=== PATIENT | male | born 1940 | race Caucasian/White ===

== ENCOUNTER 2017-04-25 07:12 | Emergency (ER) | payer OTHER ==
[~2017-04-25] VITALS: Ht 180.3 cm; Wt 74.8 kg
--- NOTE | 2017-04-25 07:12 | NUR ---
[id number], FOUND LYING IN THE STREET-PT DOES NOT RECALL WHAT HAPPENED BS-150 MG/DL. HYPOTHERMIC- T-93.2'F. BILATERAL LEG ABRASIONS. PLACED ON MONITOR. AWAITING MD ORDER
[2017-04-25] MEDS ORDERED: IV NS 0.9% 1,000 ML BAG IV ONE (07:30)
--- NOTE | 2017-04-25 07:35 | NUR ---
EKG IN PROGRESS
--- NOTE | 2017-04-25 07:41 | NUR ---
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
--- NOTE | 2017-04-25 07:54 | NUR ---
LAB AT BEDSIDE FOR BLOOD DRAW
[2017-04-25 08:13] LABS: BASOPHILS # (AUTO) 0.2 /CMM (0.0-0.2); BASOPHILS % (AUTO) 0.9 % (0.0-2.0); EOSINOPHILS % (AUTO) 0.1 % (0.0-6.0); HEMATOCRIT 42 % (39-51); LYMPHOCYTES # (AUTO) 0.6 /CMM (0.8-4.8); LYMPHOCYTES % (AUTO) 2.6 % (20.0-44.0); MEAN CORPUSCULAR HEMOGLOBIN 29 PG (26.0-33.0); MEAN CORPUSCULAR HGB CONC 34 g/dl (31.0-36.0); MEAN CORPUSCULAR VOLUME 85 fL (80-96); MONOCYTES # (AUTO) 1.7 /CMM (0.1-1.30); NEUTROPHILS # (AUTO) 21.2 /CMM (1.8-8.9); NEUTROPHILS % (AUTO) 89.4 % (43.0-81.0); PLATELET COUNT (AUTO) 301 /CMM (150-450); RDW COEFFICIENT OF VARIATION 14.3 (11.5-15.0); RED BLOOD CELL COUNT(AUTO) 4.88 MIL/uL (4.5-6.0); WHITE BLOOD COUNT (AUTO) 23.7 K/uL (4.3-11.0)
[2017-04-25 08:23] LABS: CALCIUM, SERUM 9.5 mg/dL (8.5-10.1); CARBON DIOXIDE 27 mmol/L (21-32); CHLORIDE 111 mmol/L (98-107); CREATININE 1.6 mg/dL (0.6-1.3); GLUCOSE 91 mg/dL (74-106); POTASSIUM 4.4 mmol/L (3.5-5.1); SODIUM SERUM 150 mmol/L (136-145); UREA NITROGEN, BLOOD 34 mg/dL (7-18)
[2017-04-25 08:28] LABS: ALANINE AMINOTRANSFERASE 27 U/L (12-78); ALBUMIN 4.1 g/dL (3.4-5.0); ALKALINE PHOSPHATASE 94 U/L (46-116); ASPARTATE AMINOTRANSFERASE 24 U/L (15-37); BILIRUBIN,DIRECT 0.1 mg/dL (0.0-0.2); BILIRUBIN,TOTAL 0.6 mg/dL (0.2-1.0); TOTAL PROTEIN, SERUM 7.2 g/dL (6.4-8.2)
[2017-04-25 08:30] LABS: TROPONIN I 0.033 ng/mL (0.00-0.056)
[2017-04-25 08:39] LABS: INR 0.93 (0.87-1.13); PROTHROMBIN TIME 9.7 SECS (9.5-12.7)
[2017-04-25] MEDS ORDERED: PIPERACILLIN /TAZOBACTAM 3.375 G in IV D5W 50 ML IV ONE (09:00)
[2017-04-25] MEDS ORDERED: IV NS 0.9% 250 ML IV ONE (09:00)
[2017-04-25] MEDS ORDERED: IV NS 0.9% 1,000 ML IV ONE (09:00)
--- NOTE | 2017-04-25 09:39 | NUR ---
URINE SAMPLE COLLECTED SENT TO LAB
[2017-04-25 09:53] LABS: CREATINE KINASE MB 4.7 ng/mL (0-3.6)
[2017-04-25 10:06] LABS: APPEARANCE,URINE Clear (CLEAR); BILIRUBIN,URINE Negative (NEGATIVE); BLOOD, URINE Moderate Ery/uL (NEGATIVE); COLOR,URINE Yellow (YELLOW); KETONES,URINE 15 (NEGATIVE); LEUKOCYTE ESTERASE ,URINE Negative (NEGATIVE); NITRITE, URINE Negative (NEGATIVE); PROTEIN,URINE Negative (NEGATIVE); UGLUCOSE Negative (NEGATIVE); UROBILINOGEN,URINE 0.2 EU/dL (0.2)
[2017-04-25 10:38] LABS: BACTERIA,URINE Rare /HPF (None Seen); RBC,URINE 21-50 /HPF (0-2); SQUAMOUS EPITHELIAL CELL,UR None Seen /HPF (None Seen); WBC,URINE 0-2 /HPF (0-3)
--- NOTE | 2017-04-25 10:59 | NUR ---
SAMUEL WICK AND SPOKE WITH SHMUEL.
[2017-04-25 11:27] LABS: BAND % (MANUAL) 2 % (0.0-5.0); LYMPHOCYTES % (MANUAL) 6 % (16-48); MONOCYTES % (MANUAL) 4 % (0-11.0); NEUTROPHILS % (MANUAL) 88 (42-76)
--- NOTE | 2017-04-25 11:58 | NUR ---
[phone] [facility] CALL FOR REPORT DR BROWN ACCEPTING
--- NOTE | 2017-04-25 12:55 | NUR ---
CALLED ON REPORT TO [facility] TWICE PLACED ON HOLD THEY SAID THEY WILL SPEAK TO THEIR NURSING DIRECTOR TRANSPORTATION
--- NOTE | 2017-04-25 13:14 | NUR ---
GAVE REPORT TO ORIN MOYA AT [facility]
[2017-04-25 13:40] VITALS: BP 162/83
== END 2017-04-25 13:42 | disposition short-term general hospital (02) ==
LOC: ER 07:14
DX: T68.XXXA Hypothermia, initial encounter (principal); D72.829 Elevated white blood cell count, unspecified; R74.0 Nonspecific elevation of levels of transaminase and lactic acid dehydrogenase [LDH]
CPT/HCPCS: 36415; 71045; 80048; 80076; 81001; 82550; 82553; 83605 ×2; 84484; 85025; 85730; 87040 ×2; 87086; 93005; 96361; 96365; 99291; A4606; J2543; J7030 ×2; J7050; J7060; 81000-TC; Z7610